=== PATIENT | female | born 1975 | race Caucasian/White ===

== ENCOUNTER 2023-02-26 20:24 | Emergency (ER) | payer OTHER, SELFPAY ==
[2023-02-26 20:41] VITALS: BP 126/79; PULSE 65; RESP 16; TEMP 36.4; O2SAT 95; BMI 41.5
--- NOTE | 2023-02-26 21:51 | XRR_ITS ---
PROCEDURE INFORMATION: Exam: XR Right Ankle Exam date and time: 02/26/2023 10:06 PM Age: 48 years old Clinical indication: Injury or trauma; Fall; Blunt trauma; Ankle; Right TECHNIQUE: Imaging protocol: Radiologic exam of the right ankle. Views: 3 or more views. COMPARISON: No relevant prior studies available. FINDINGS: Bones/joints: Oblique fracture through the distal fibula with intra-articular extension and mild lateral displacement. Widening of the medial ankle mortise. Inferiorly displaced fracture of the medial malleolus. Acute fracture of the tibial posterior malleolus with intra-articular extension, mild posterior displacement. Calcaneal enthesopathy. Soft tissues: Diffuse ankle swelling but most conspicuous laterally. Small ankle joint effusion. XR/XR ankle RT min 3V* [id number] IMPRESSION: 1. Distal fibula , medial malleolus, and posterior malleolus fractures with intra-articular extension. Widening of the medial ankle mortise concerning for ligamentous injury. 2. Recommend imaging of the proximal tibia and fibula to exclude proximal injury in the setting of ankle fracture.
--- NOTE | 2023-02-26 21:53 | W.ED.EXTPRO ---
HPI - Extremity Problem General: Chief complaint: Extremity Injury, Lower Stated complaint: right ankle pain Time Seen by Provider: 02/26/23 22:05 History of Present Illness: 48-year-old female presents emergency room with right ankle pain and swelling after sustaining a fall about 3 hours ago. She described the pain as throbbing/aching sensation with severity of 7 out of 10. Creased range of motion and pain with range of motion. Pain with full weightbearing. Any other injury at this time. Injury, no LOC, no neck pain, chest pain Review of Systems General: Reports: 10 or more systems reviewed and unremarkable except in HPI and below Musc: Reports: extremity pain, extremity swelling, joint pain, joint swelling and limited range of motion; Denies: joint warmth Physical Exam HENMT: COMMON NORMALS: normocephalic, atraumatic, hearing grossly normal bilaterally, external ears normal, EAC's normal, TM's normal bilaterally, Normal external nose present, Normal nasal mucous membranes and turbinates present, moist oral mucous membranes, oropharynx normal, dentition normal and gingiva normal HEAD & SCALP: normocephalic and atraumatic NOSE: Normal external nose present and Normal nasal mucous membranes and turbinates present EXTERNAL EAR: Yes external ears normal EXTERNAL AUDITORY CANAL: EAC's normal TYMPANIC MEMBRANE: TM's normal bilaterally Neck/C-Spine: COMMON NORMALS: full ROM, no lymphadenopathy, supple, no meningeal signs, no JVD, Thyroid normal and No carotid bruits THYROID: Thyroid normal Chest: COMMONS NORMALS: normal inspection of the chest, normal palpation of entire chest wall, normal inspection of the breasts and normal palpation of the breasts Breast/axilla inspection: Yes normal inspection of the breasts BREAST/AXILLA PALPATION: Yes normal palpation of the breasts Cardio: COMMON NORMALS: no JVD Extremity: RIGHT LOWER EXTREMITY: Yes foot & digits (swelling and phimosis around the ankle. No visible open wound or laceratio) Right ankle: Yes inspection, Yes palpation (Diffuse tenderness upon palpation.), Yes ROM (Range of motion due to pain.) and Yes neurovascular exam Neuro: MENINGEAL SIGNS: Yes no meningeal signs Course Vital Signs: Vital signs: Vital Signs Temperature 97.6 F 02/26/23 20:41 Pulse Rate 78 02/26/23 23:54 Respiratory Rate 18 02/26/23 23:54 Blood Pressure 126/79 02/26/23 20:41 Pulse Oximetry 98 02/26/23 23:54 Oxygen Delivery Me thod Room Air 02/26/23 20:41 MDM - Extremity (Nontraumatic) Medical Decision Making Patient was made comfortable emergency room. Patient had a splint placed. Patient declined any pain medication at this time. Given referral to see orthopedics for further evaluation and treatment. Differential Diagnosis Likely cellulitis, lower extremity edema and deep vein thrombosis of lower extremity (Fracture, dislocation, sprain, strain,) Lab Data Radiology Impressions Ankle X-Ray 02/26/23 21:51 IMPRESSION: 1. Distal fibula , medial malleolus, and posterior malleolus fractures with intra-articular extension. Widening of the medial ankle mortise concerning for ligamentous injury. 2. Recommend imaging of the proximal tibia and fibula to exclude proximal injury in the setting of ankle fracture. Imaging Data Other Xray: My impression: X-ray reviewed by me. Showed distal tibial and fibula fracture. Discharge Plan Discharge Patient Disposition: Home Clinical Impression: Ankle sprain and strain, Ankle fracture Condition: Stable Prescriptions: New ultram 50 mg PO BID PRN (Reason: pain) Qty: 20 0RF Discharge Orders: Discharge ED (Routine); Ordered 02/26/23 Ordered By: Darinel Roland Referrals: Audelia De La Cruz MD [Physician] - 4-7 days Discharge Diet: Advance as tolerated Discharge Activity: Limit activity as instructed Patient Instructions: Opioid Safety, Pain Management Coding Level of Care Code ED Occupational Health Nurse Supervisor for Ciro Licea
[2023-02-26 23:25] VITALS: RESP 18; O2SAT 96
[2023-02-26] MEDS: oxyCODONE-APAP 10-325 mg Tablet 2 TAB PO (23:25)
[2023-02-26 23:54] VITALS: PULSE 78; RESP 18; O2SAT 98
== END 2023-02-26 23:30 | disposition home or self-care (01) ==
PROVIDERS: Emergency Provider Family Medicine
DX: S93.401A Sprain of unspecified ligament of right ankle, initial encounter (principal); S96.911A Strain of unspecified muscle and tendon at ankle and foot level, right foot, initial encounter; S82.51XA Displaced fracture of medial malleolus of right tibia, initial encounter for closed fracture; W19.XXXA Unspecified fall, initial encounter
CPT/HCPCS: 29515; 73610; 99283; E0114